=== PATIENT | female | born 1990 | race Caucasian/White ===

== ENCOUNTER 2022-10-10 08:59 | Outpatient (CLI) | payer OTHER, SELFPAY ==
--- NOTE | ~2022-10-10 | US_ITS ---
US_ABDRLQ_US 10/10/2022 10:22 Indication: Evaluate hernia repair. Right lower quadrant pain. Procedure: High-resolution Limited ultrasound of the right lower abdomen Comparison: No prior studies for comparison. Findings: Normal heterogeneous echotexture is present throughout the right lower abdomen without disc rete solid or cystic mass. No evidence for hernia. Normal bowel motility is noted. Impression: 1: Normal limited ultrasound of the right lower abdomen. Reviewed, dictated and finalized at location L. Impression: 1: Normal limited ultrasound of the right lower abdomen.
--- NOTE | ~2022-10-10 | US_ITS ---
EXAMINATION: US transvaginal DATE: 10/10/2022 10:22 INDICATION: Right lower quadrant pain Comparison:No prior studies for comparison. TECHNIQUE: Multiple transabdominal and endovaginal sonographic images of the pelvis performed. FINDINGS: The uterus measures 7.3 x 5.1 x 3.7 cm. The endometrial complex measures endometrium measur es 6 mm. There is fluid in the cervix. There is free fluid in the pelvis. There is a 2.3 cm right ova mandi cyst. There is a 2 cm left ovarian cysts. There is normal Doppler signal in both ovaries. IMPRESSION: 1. Small bilateral ovarian cysts, largest in the right ovary measuring 2.3 cm. 2: Normal endometrial thickness measuring 6 mm with trace fluid in the cervix. Reviewed, dictated and finalized at location L.
== END 2022-10-10 09:00 | disposition home or self-care (01) ==
PROVIDERS: PCP Nurse Practitioner Family; Visit Provider Nurse Practitioner Family
DX: R10.31 Right lower quadrant pain (principal); N83.201 Unspecified ovarian cyst, right side; N83.202 Unspecified ovarian cyst, left side
CPT/HCPCS: 76705; 76830

== ENCOUNTER 2023-06-11 10:08 | Outpatient (CLI) | payer OTHER, SELFPAY ==
[2023-06-11 10:58] LABS: Appearance Urine Clear (Clear); Bilirubin Urine Negative (Negative); Blood Urine Negative (Negative); Color Urine Yellow (Yellow); Glucose Urine UA Negative (Negative); Ketones Urine Negative (Negative); Leukocyte Esterase Ur Negative LEU/UL (NEGATIVE); Nitrate Urine Negative (Negative); Protein Urine Negative (Negative); Specific Grav Ur 1.023 (1.001-1.035); Urobilinogen Urine 0.2 mg/dL (<2.0); pH Urine 5.5 (5.0-9.0)
[2023-06-11 11:01] LABS: Hematocrit 38.9 % (37.0-47.0); Hemoglobin 12.9 g/dL (12.0-15.0); Mean Corpuscular HGB Conc 33.2 g/dl (32-36); Mean Corpuscular Hemoglobin 31.3 pg (26-34); Mean Corpuscular Volume 94.4 fl (80-100); Mean Platelet Volume 8.9 fl (7.4-10.4); Platelet Count Result 239 k/mm3 (150-375); Red Blood Count 4.12 M/mm3 (4.2-5.4); Red Cell Distribution Width 11.8 % (11.5-14.5); White Blood Count 8.9 K/mm3 (4.5-10.0)
[2023-06-11 11:41] LABS: Add Urine Microscopic? NO
[2023-06-11 11:51] LABS: HIV 1/2 Ab P24 Ag Result Negative (Negative)
[2023-06-11 12:14] LABS: Rubella IgG Antibody 55.8 IU/ML
[2023-06-11 12:34] LABS: Hepatitis C Virus Antibody Negative (Negative)
[2023-06-11 13:22] LABS: Hepatitis B Surface Antigen Negative (Negative)
[2023-06-11 14:13] LABS: Rapid Plasma Reagin Non-Reactive (NonReactive)
[2023-06-11 22:32] LABS: Hepatitis B Surface Antigen 0.07 S/C; Hepatitis C Virus Antibody 0.01 S/C
[2023-06-11 22:34] LABS: HIV 1/2 Ab P24 Ag 0.12
[2023-06-14 23:27] LABS: Hematocrit 39.9 % (35.0-45.0); Hemoglobin 12.9 g/dL (11.7-15.5); MCH 31.7 pg (27.0-33.0); RDW 11.9 % (11.0-15.0); Red Blood Cell Count 4.07 Mill/uL (3.80-5.10)
[2023-06-23 17:12] LABS: CF Result NEGATIVE (NEGATIVE); Ethnicity NG
== END 2023-06-11 10:09 | disposition home or self-care (01) ==
LOC: ANHLAB 10:12
PROVIDERS: PCP Nurse Practitioner Family; Visit Provider Obstetrics & Gynecology
DX: Z34.90 Encounter for supervision of normal pregnancy, unspecified, unspecified trimester (principal); Z3A.00 Weeks of gestation of pregnancy not specified
CPT/HCPCS: 36415; 81003; 81220; 81243; 83021; 84443; 85027; 86592; 86703; 86762; 86787; 86803; 86850; 86900; 86901; 87086; 87340; G0432

== ENCOUNTER 2023-06-30 09:43 | Outpatient (CLI) | payer MEDICAID, SELFPAY ==
--- NOTE | 2023-07-04 12:22 | WPDHOLTEREM ---
Holter/Event Monitor Holter/Event Monitor Date of procedure: 06/30/23 Holter/Event Procedure: 24 Hr Holter Monitor Indications: Congenital mal of heart Conclusion: 1. 24 hour holter monitor on 06/30/23. 2. Underlying rhythm is sinus rhythm. HR range 45-148 bpm; average 75 bpm. HR at 45 bpm at 05:37. HR at 148 bpm at 18:35. 3. There are 119 premature supraventricular complexes and 2 supraventricular couplets. No supraventricular tachycardia. 4. There are 2 premature ventricular complexes. No ventricular tachycardia. 5. No sinoatrial or atrioventricular blocks. No significant pauses greater than 2 seconds. 6. No symptoms available for correlation.
== END 2023-06-30 09:44 | disposition home or self-care (01) ==
PROVIDERS: PCP Nurse Practitioner Family; Visit Provider Obstetrics & Gynecology
DX: Q24.9 Congenital malformation of heart, unspecified (principal)
CPT/HCPCS: 93225; 93226

== ENCOUNTER 2023-08-19 09:39 | Outpatient (CLI) | payer OTHER, SELFPAY ==
--- NOTE | 2023-08-19 10:07 | ECHO_ITS ---
Patient Info Name: Wandy Brooks Age: 32 years : 1990 Gender: Female Ht: 63 in Wt: 166 lbs BSA: 1.85 m2 HR: 65 bpm BP: 112 / 67 mmHg Technical Quality: Fair Exam Date: 08/19/2023 10:10 AM Exam Location: Echo Lab Patient Status: Outpatient Admit Date: 08/19/2023 Staff Ordering Physician: Chuy Dhaliwal DO Grounds Cleaner: Irish Polanco RDCS Attending Provider: Chuy Dhaliwal DO Referring Physician: Isra CORMIER; Exam Type: CA echo doppler color flow Study Info Indications R00.2 - Palpitations Complete two-dimensional, color flow and Doppler transthoracic echocardiogram is performed. Summary 1. Complete two-dimensional, color flow and Doppler transthoracic echocardiogram is performed. 2. Left ventricular chamber dimension is mildly enlarged. 3. Left ventricular systolic function is normal, estimated at 60-65%. 4. The left ventricular diastolic function is normal. 5. E/e' 9 is minimally elevated. 6. There is trace mitral valve regurgitation. 7. There is trace tricuspid valve regurgitation. 8. No pulmonary hypertension, estimated pulmonary arterial systolic pressure is 27 mmHg. 9. There is trace pulmonic regurgitation. Left Ventricle E/e' 9 is minimally elevated. Left ventricular chamber dimension is mildly enlarged. Left ventricular systolic function is normal, estimated at 60-65%. The left ventricular diastolic function is normal. Right Ventricle Right ventricular chamber dimension is normal. Right ventricular systolic function is normal. Left Atria Left atrial chamber dimension is normal. Right Atria Right atrial chamber dimension is normal. Aortic Valve The aortic valve is trileaflet. There is no aortic valve stenosis. There is no aortic valve regurgitation. Pulmonic Valve There is trace pulmonic regurgitation. Mitral Valve There is no mitral valve stenosis. There is trace mitral valve regurgitation. Tricuspid Valve There is trace tricuspid valve regurgitation. No pulmonary hypertension, estimated pulmonary arterial systolic pressure is 27 mmHg. Pericardium/Pleural There is no pericardial effusion. Inferior Vena Cava Normal inferior vena cava with >50% collapse upon inspiration consistent with normal right atrial pressure, 5 mmHg. Aorta The aortic root size at the sinus of Valsalva is normal. Left Ventricular Outflow Tract Name Value Normal LVOT 2D LVOT Diameter 2.0 cm LVOT Doppler LVOT Peak Gradient 7 mmHg LVOT Mean Gradient 4 mmHg LVOT VTI 28 cm LVOT VTI/AV VTI Ratio 0.8 LVOT Stroke Volume 85 ml LVOT CO 6.1 l/min LVOT CI 3.3 l/min/m2 Pulmonic Valve Name Value Normal RVOT Doppler RVOT Peak Gradient 4 mmHg PV Doppler
== END 2023-08-19 09:40 | disposition home or self-care (01) ==
LOC: ANHCARD 09:42
PROVIDERS: PCP Nurse Practitioner Family; Visit Provider Internal Medicine Cardiovascular Disease
DX: R00.2 Palpitations (principal)
CPT/HCPCS: 93306

== ENCOUNTER 2023-09-24 07:21 | Outpatient (RCR) | payer OTHER, SELFPAY ==
[2023-09-24 08:56] LABS: Hematocrit 41.1 % (37.0-47.0); Hemoglobin 13.5 g/dL (12.0-15.0); Mean Corpuscular HGB Conc 32.8 g/dl (32-36); Mean Corpuscular Hemoglobin 32.1 pg (26-34); Mean Corpuscular Volume 97.6 fl (80-100); Mean Platelet Volume 9.2 fl (7.4-10.4); Platelet Count Result 256 k/mm3 (150-375); Red Blood Count 4.21 M/mm3 (4.2-5.4); Red Cell Distribution Width 12.7 % (11.5-14.5); White Blood Count 9.3 K/mm3 (4.5-10.0)
[2023-09-24 08:57] LABS: Glucose 1 Hour PP 50gm Dose 132 mg/dL
== END 2023-12-23 23:59 | disposition home or self-care (01) ==
LOC: ANHLAB 07:21
PROVIDERS: PCP Nurse Practitioner Family; Visit Provider Obstetrics & Gynecology
DX: O36.0190 Maternal care for anti-D [Rh] antibodies, unspecified trimester, not applicable or unspecified (principal); Z3A.00 Weeks of gestation of pregnancy not specified
CPT/HCPCS: 36415; 82947; 85027; 85461; 86850; 86900; 86901; 97140; 97530

== ENCOUNTER 2023-09-26 07:23 | Outpatient (CLI) | payer OTHER, SELFPAY ==
[2023-09-26 07:57] LABS: Glucose Fasting Gestational 81 mg/dL (>/=95)
[2023-09-26 09:37] LABS: Glucose 1 Hour Gest 93 mg/dL (>/=180)
[2023-09-26 10:52] LABS: Glucose 2 Hour Gest 122 mg/dL (>/= 155)
[2023-09-26 11:17] LABS: Glucose 3 Hour Gest 110 mg/dL (>/=140)
== END 2023-09-26 07:24 | disposition home or self-care (01) ==
LOC: ANHLAB 07:24
PROVIDERS: PCP Nurse Practitioner Family; Visit Provider Obstetrics & Gynecology
DX: O99.810 Abnormal glucose complicating pregnancy (principal); Z3A.00 Weeks of gestation of pregnancy not specified
CPT/HCPCS: 36415; 82951; 82952

== ENCOUNTER 2023-09-29 11:14 | Outpatient (CLI) | payer OTHER, SELFPAY ==
[2023-09-29] MEDS: RHO(D) IMMUNE GLOBULIN 300 MCG/2 ML SYRINGE IM (15:25)
== END 2023-09-29 11:15 | disposition home or self-care (01) ==
LOC: ANHLAB 11:15
PROVIDERS: PCP Nurse Practitioner Family; Visit Provider Obstetrics & Gynecology
DX: O26.899 Other specified pregnancy related conditions, unspecified trimester (principal); Z67.91 Unspecified blood type, Rh negative; Z3A.00 Weeks of gestation of pregnancy not specified
CPT/HCPCS: 36415; 85461; 86850; 86900; 86901; 90384; 96372; J2790

== ENCOUNTER 2023-10-29 08:45 | Outpatient (RCR) | payer OTHER, SELFPAY ==
--- NOTE | 2023-08-18 16:50 | PTOPEVAL1 ---
Assessment and note entered by Vinita Wiggins, PT Evaluation Information Assessment Status Evaluation Diagnosis dorsalgia, enc for supervision of normal usp Therapy condition Abnormal posture weakness sacroiliac instability lumbar instability Onset 22 weeks worsened Subjective Information Pt reports mostly feeling hip issues . history of disc bulge thinks L2, diagnosed at 20, no discernable traumatic event. Was given a joint cushioning shot that helped. Steroid shots did not help. Has had sciatic before as well, used to go down the right leg mostly, both for a short time. Dx of pelvic tilt but unsure of which way. Also has really flat feet. Reports has fallen ankles and the last therapist told her not to have arch supports. Used to take glucosamine chondroitin but hasn't recently Reported Pain Level Pain Score 6: Self Report Assessment PT Clinical Summary Pt presents with complaints of increased low back pain during her . She has a history of anterior pelvic tilt and she thinks an L2 disc bulge the has been treated for in the past. Her symptoms currently appear sacroiliac joint related as she feels grinding at times in the location of the sacroiliac joint. Today she demo's abnormal posture with possible RLE length > LLE approx 1/2 inches, poor posture with difficulty activating the TRAM musculature, poor foundation with flat feet and genu valgus aubree. Pt will benefit from therapy to address these deficits, improve lumbosacral stability,and reduce pain to improve quality and functionality during her and beyond. Plan of Care Interventions Manual Therapy,Neuro Re-education,Patient/ Caregiver Educati,Therapeutic Activities, Therapeutic Exercise PT Services Indicated Yes Treatment Frequency and 1-2x weekly x 12 visits Duration These treatments will address the objective and functional deficits as defined above. The patient will be advanced safely and appropriately in order for the patient to progress towards his/her prior level of function. Additional exercises will be introduced and as well as a comprehensive home exercise program upon discharge, if needed, ?to ensure carryover of functional gains achieved in the clinic. This treatment plan has been reviewed and agreement upon by the patient.
--- NOTE | 2023-08-18 16:51 | OPREHPOC ---
Outpatient Therapy Plan of Care This is a Multidisciplinary Plan of Care that may contain components documented by all disciplines (PT, OT, and ST.) PT Goal 1 Goal Pt will be independent in HEP Pt will verbalize understanding of diagnosis and prognosis Target Visit 6 PT Problem 2 PT Problem #2 Pain PT Goal 1 Goal Pt will report lowest pain rating at 0/10 to show improvement in overall discomfort Target Visit 6 PT Goal 2 Goal Pt will report greatest pain level at 5/10 or less to improve ADLs and activities Target Visit 12 PT Problem 3 PT Problem #3 Impaired Strength PT Goal 1 Goal Pt will demo strength of 4/5 aubree gluteus medius to improve lumbopelvic stability Target Visit 6 PT Goal 2 Goal Pt will demo core strength of 3+/5 of the TRAM to improve lumbopelvic stability Target Visit 12 PT Problem 4 PT Problem #4 Impaired Endurance PT Goal 1 Goal Pt will report ability to toelrate low level inserts for a full day to assist in ankle/foot/BLE alignment to improve foundation for lumbopelvic area. Target Visit 12
--- NOTE | 2023-10-29 10:05 | PTOPDC ---
Assessment and note entered by Vinita Wiggins, PT Evaluation Information Assessment Status Discharge Diagnosis dorsalgia, enc for supervision of normal uspec Onset 22 weeks worsened (since ) Subjective Information Pt states her previous co-morbidities had become unmanageable but has made significant progress. Is now 32 weeks . Reports feeling 90-95% improved. Feels great about her home exercises Reported Pain Level Pain Score 0: Self Report Assessment PT Clinical Summary Pt has attended therapy consistently for low back pain that had increased since . Today she reports her expectations related to pain reduction have been exceeded, she feels she has much more knowledge of her musculature and ability to strength appropriately, and correct her alignment. Her presentation today is WNL for 32 weeks gestation, she has met all her personal goals and therapy related goals, and reports understanding of her HEP and advancement. Thus patient is being discharged from therapy for having completed her plan of care. Plan of Care PT Services Indicated No
== END 2023-11-05 13:02 | disposition home or self-care (01) ==
LOC: ANHHIPT 08:45
PROVIDERS: PCP Nurse Practitioner Family; Visit Provider Obstetrics & Gynecology
DX: O26.893 Other specified pregnancy related conditions, third trimester (principal); M54.50 Low back pain, unspecified; Z3A.00 Weeks of gestation of pregnancy not specified
CPT/HCPCS: 97110; 97140; 97162; 97530; 97750

== ENCOUNTER 2023-11-03 11:07 | Outpatient (CLI) | payer OTHER, SELFPAY ==
[2023-11-03 11:40] LABS: Hematocrit 41.5 % (37.0-47.0); Hemoglobin 13.8 g/dL (12.0-15.0); Mean Corpuscular HGB Conc 33.3 g/dl (32-36); Mean Corpuscular Volume 96.3 fl (80-100); Mean Platelet Volume 9.6 fl (7.4-10.4); Platelet Count Result 237 k/mm3 (150-375); Red Blood Count 4.31 M/mm3 (4.2-5.4); Red Cell Distribution Width 12.5 % (11.5-14.5); White Blood Count 9.8 K/mm3 (4.5-10.0)
[2023-11-03 12:31] LABS: HIV 1/2 Ab P24 Ag Result Negative (Negative)
[2023-11-03 19:09] LABS: Rapid Plasma Reagin Non-Reactive (NonReactive)
== END 2023-11-03 11:08 | disposition home or self-care (01) ==
LOC: ANHLAB 11:08
PROVIDERS: PCP Nurse Practitioner Family; Visit Provider Nurse Practitioner Family
DX: Z34.90 Encounter for supervision of normal pregnancy, unspecified, unspecified trimester (principal); Z3A.00 Weeks of gestation of pregnancy not specified
CPT/HCPCS: 36415; 85027; 86592; 86703; G0432

== ENCOUNTER 2023-12-02 13:27 | Outpatient (CLI) | payer OTHER, SELFPAY ==
[2023-12-02 14:11] VITALS: BP 123/70; PULSE 70
--- NOTE | 2023-12-02 14:13 | PC.NURSE ---
Dr. Munguia notified of negation ROM plus, okay to discharge
[2023-12-02 14:14] LABS: OBXCEM ROM Plus Negative
== END 2023-12-02 14:16 | disposition home or self-care (01) ==
LOC: ANHOBOP 14:07 → ANHOBPP 14:07
PROVIDERS: PCP Nurse Practitioner Family; Visit Provider Obstetrics & Gynecology
DX: O42.90 Premature rupture of membranes, unspecified as to length of time between rupture and onset of labor, unspecified weeks of gestation (principal); Z3A.00 Weeks of gestation of pregnancy not specified
CPT/HCPCS: 59025; 84112; 99199

== ENCOUNTER 2023-12-09 13:29 | Outpatient (CLI) | payer OTHER, SELFPAY ==
[2023-12-09 14:15] VITALS: BP 127/76; PULSE 65
[2023-12-09 14:32] VITALS: BP 125/72; PULSE 65
[2023-12-09 14:39] LABS: Basophils Percent Auto 0.3 % (0.2-1.2); Eosinophils Absolute Auto 0.1 K/mm3 (0-0.3); Eosinophils Percent Auto 0.6 % (0-4.4); Hematocrit 39.6 % (37.0-47.0); Hemoglobin 13.8 g/dL (12.0-15.0); Immature Granulocyte Absolute 0.15 K/mm3 (0.00-0.031); Immature Granulocyte Percent A 1.4 % (0-0.5); Lymphocytes Absolute Auto 1.99 K/mm3 (0.9-3.2); Lymphocytes Percent Auto 18.2 % (18.3-44.2); Mean Corpuscular HGB Conc 34.8 g/dl (32-36); Mean Corpuscular Hemoglobin 33.3 pg (26-34); Mean Corpuscular Volume 95.7 fl (80-100); Mean Platelet Volume 10.5 fl (7.4-10.4); Monocytes Absolute Auto 1.1 K/mm3 (0.1-0.6); Monocytes Percent Auto 9.9 % (2.6-8.5); Neutrophils Absolute Auto 7.6 K/mm3 (1.3-6.7); Neutrophils Percent Auto 69.6 % (45.5-73.1); Platelet Count Result 205 k/mm3 (150-375); Red Blood Count 4.14 M/mm3 (4.2-5.4); Red Cell Distribution Width 13.3 % (11.5-14.5); White Blood Count 10.9 K/mm3 (4.5-10.0)
[2023-12-09 14:40] LABS: Add Urine Microscopic? NO; Appearance Urine Clear (Clear); Bilirubin Urine Negative (Negative); Blood Urine Negative (Negative); Color Urine Yellow (Yellow); Glucose Urine UA Negative (Negative); Ketones Urine Negative (Negative); Leukocyte Esterase Ur Negative LEU/UL (Negative); Nitrate Urine Negative (Negative); Protein Urine Negative (Negative); Specific Grav Ur 1.011 (1.001-1.035); Urobilinogen Urine 0.2 mg/dL (<2.0)
[2023-12-09 14:45] VITALS: BP 120/74; PULSE 70
[2023-12-09 14:46] LABS: Creatinine Urine 48.2 mg/dL; Total Protein Urine Random 16 mg/dL; Ur Ttl Prot Creatinine Ratio 0.33 mg/mg (0-0.20)
[2023-12-09 14:48] LABS: Alanine Aminotransferase 36 U/L (6-35); Albumin Level 3.7 g/dL (3.5-5.1); Alkaline Phosphatase 126 U/L (38-126); Anion Gap 8 mmol/L (4-12); Aspartate Amino Transferase 38 U/L (14-36); Bilirubin,Total 0.3 mg/dL (0.2-1.3); Blood Urea Nitrogen 12 mg/dL (7-17); Calcium 9.2 mg/dL (8.4-10.2); Carbon Dioxide 22 mmol/L (22-30); Chloride 103 mmol/L (98-107); Estimated Glomerular Filt Rate > 60; Glucose 78 mg/dL (65-110); Potassium 4.3 mmol/L (3.4-5.0); Sodium 133 mmol/L (137-145); Uric Acid 5.5 mg/dL (2.5-7.5)
[2023-12-09 14:52] VITALS: BP 127/76; PULSE 77
--- NOTE | 2023-12-09 14:54 | PC.NURSE ---
Patient discharged to home with orders for a [address] Munguia.
== END 2023-12-09 14:50 | disposition home or self-care (01) ==
LOC: ANHOBOP 13:33 → ANHLDR 13:33
PROVIDERS: PCP Nurse Practitioner Family; Visit Provider Obstetrics & Gynecology
DX: O13.9 Gestational [pregnancy-induced] hypertension without significant proteinuria, unspecified trimester (principal); Z3A.00 Weeks of gestation of pregnancy not specified
CPT/HCPCS: 36415; 59025; 80053; 81003; 82570; 84156; 84550; 85025; 99199

== ENCOUNTER 2023-12-10 16:45 | Outpatient (NON) | payer OTHER, SELFPAY ==
[2023-12-10 17:06] VITALS: BMI 35.5
[2023-12-10 17:21] LABS: Collection Time Urine 24 HOURS
[2023-12-10 17:37] LABS: Patient Weight 200 Lbs; Total Volume 24 Hour Urine 2000 ml
[2023-12-10 17:40] LABS: Total Protein Urine Random 10 mg/dL
[2023-12-10 17:43] LABS: Creatinine Clearance Urine 155.4 ml/min (75-125); Creatinine Urine 74.8 mg/dL
[2023-12-10 17:47] LABS: Total Protein Urine 24 Hr 200 mg/24hr (28-141); Total Volume 24 Hour Urine 2000 ml
== END 2023-12-10 16:46 | disposition home or self-care (01) ==
LOC: ANHOBOP 17:02
PROVIDERS: PCP Nurse Practitioner Family; Visit Provider Obstetrics & Gynecology
DX: Z34.90 Encounter for supervision of normal pregnancy, unspecified, unspecified trimester (principal); Z3A.00 Weeks of gestation of pregnancy not specified
CPT/HCPCS: 81050; 82575; 84156

== ENCOUNTER 2023-12-23 11:55 | Inpatient (IN) | payer OTHER, SELFPAY ==
[2023-12-23] VITALS (94 sets, daily range): BP systolic 109–147; BP diastolic 63–97; PULSE 53–92; TEMP 37; O2SAT 98–100; BMI 36.3
--- NOTE | ~2023-12-23 | US_ITS ---
EXAMINATION: US OB limited w BPP DATE: 12/23/2023 13:08 INDICATION: Evaluate well-being. 40 weeks gestation. TECHNIQUE: Real-time pelvic ultrasound was performed. The interpreting radiologist was not present fo r the study. COMPARISON: None. FINDINGS: There is a single living fetus in vertex presentation. The placenta is posterior. cardiac acti vity and movement are demonstrated. heart rate is 148 beats per minute (bpm). Amniotic fl uid volume is low measuring 4 cm (normal range for gestational age is 7.1-21.4 cm). Biophysical profile performed by the technologist: breathing (30 sec sustained breathing in 30 minutes): 2 out of 2 movement (3 gross body movements in 30 minutes): 2 out of 2 tone (one episode of uyfvcqq-kawhkgxcr-ugnybxs limb movement): 2 out of 2 Amniotic fluid pocket (2 cm): 2 out of 2 Total score: 8 out of 8 IMPRESSION: 1. Single living intrauterine in vertex presentation with heart rate of 148 bpm. 2. Oligohydramnios. FABIAN measures 4 cm. 3. Biophysical profile 8 out of 8. Reviewed, dictated and finalized at location B.
[2023-12-23 14:19] LABS: Basophils Percent Auto 0.3 % (0.2-1.2); Eosinophils Absolute Auto 0.1 K/mm3 (0-0.3); Eosinophils Percent Auto 0.6 % (0-4.4); Hematocrit 41.2 % (37.0-47.0); Hemoglobin 14.4 g/dL (12.0-15.0); Immature Granulocyte Absolute 0.11 K/mm3 (0.00-0.031); Lymphocytes Absolute Auto 1.95 K/mm3 (0.9-3.2); Lymphocytes Percent Auto 17.9 % (18.3-44.2); Mean Corpuscular Hemoglobin 33.3 pg (26-34); Mean Corpuscular Volume 95.4 fl (80-100); Mean Platelet Volume 10.9 fl (7.4-10.4); Monocytes Percent Auto 8.9 % (2.6-8.5); Neutrophils Absolute Auto 7.7 K/mm3 (1.3-6.7); Neutrophils Percent Auto 71.3 % (45.5-73.1); Platelet Count Result 195 k/mm3 (150-375); Red Blood Count 4.32 M/mm3 (4.2-5.4); Red Cell Distribution Width 13.5 % (11.5-14.5); White Blood Count 10.9 K/mm3 (4.5-10.0)
--- NOTE | 2023-12-23 14:31 | LDADM ---
This patient, Wandy Brooks, was admitted to Labor/Delivery/Recovery 107 on 12/23/23 at 11:55. Plans for labor, pain management and were discussed with patient. Patient/family oriented to hospital policies and general routines including ID bracelet, bed and alarms, visiting hours, pain management, procedures, bathroom and other care routines, personal items, smoking policy, room service/diet and guest tray routines, security routines, and visiting hours. Patient/Family are encouraged to report perceived risks to care and to ask questions if they do not understand what they are told or what they should do. See OBIX for further documentation.
[2023-12-23] MEDS: LACTATED RINGERS 1,000 ML 125 ML IV CONT ×2 (15:16→23:55)
[2023-12-23] MEDS: OXYTOCIN 30 UNITS/NS 500 ML 30 UNITS/500 ML BAG IV CONT (15:19)
[2023-12-23 15:20] LABS: HIV 1/2 Ab P24 Ag Result Negative (Negative)
--- NOTE | 2023-12-23 15:53 | PM.IMHP ---
H&P: HPI History of Present Illness Date/Time: 12/23/23 15:53 Chief Complaint: Oligohydramnios Narrative: patient is a 33-year-old G1. With an EDC of 12/23/2023. She was sent to Labor and delivery for decreased movement and also surveillance testing due to her wanting to deliver to 41 weeks if everything was fine. During the testing her FABIAN was 4.0. She was informed this is oligohydramnios and it is recommended for delivery induction. Discussed risk of oligohydramnios. And risk of if she continues without delivery. She agrees to induction of labor. Review of Systems Review of Systems: All systems reviewed & are unremarkable except as noted in HPI and below Constitutional: Constitutional: Reports no additional constitutional complaints and Denies headache(s) Eyes: Eyes: Denies spots in vision ENT: Reports system reviewed and no additional complaints, except as documented and Denies headache(s) Cardiovascular: Cardiovascular: Denies chest pain and Denies dyspnea Respiratory: Respiratory: Denies dyspnea Gastrointestinal: Gastrointestinal: Reports no additional gastrointestinal complaints Genitourinary: Genitourinary: Reports amenorrhea Musculoskeletal: Musculoskeletal: Reports no additional musculoskeletal complaints Integumentary/Breasts: Skin/Breast: Denies breast mass and Denies rash Neurologic: Denies headache(s) Psychiatric: Psychiatric: Reports no additional psychiatric complaints PMFSH Past Medical History Medical History Anemia Anxiety Back pain Bulging disc Depression Eczema Headache Heart defect Hypertension PTSD (post-traumatic stress disorder) Surgical History Surgical History H/O inguinal hernia repair H/O wisdom tooth extraction Family History Family History Mother Diabetes mellitus Depression Hypertension Heart disease Social History Social History Social History: Caffeine- daily Smoking status: Never smoker Second hand tobacco smoke exposure: No Alcohol intake: current Alcohol use details: Rarely Substance use: former Substance use type: marijuana Other substance usage details: Pt. states she used marijuana prior to Do You Feel Safe in your Home?: Yes Lack of Transportation: No Lack of Food: Never True Current Housing: I Have Housing Concerned About Future Housing: No Difficulty Paying Gas/Electric Bills: No Difficulty Paying for Meds: No Currently Unemployed: No Education: High School Diploma/GED Difficulty w/ Childcare or Family Care: No Living arrangements: with family Additional living arrangements comments: Boyfriend and his daughter Occupation/Education: other Additional occupation/education comments: stay at home mother Gender identity (if verbalized by the patient): Female Sexual Orientation (if Verbalized by the Patient): Straight or Heterosexual Spiritual care concerns: No Agree to blood products: Yes Meds Home Medications and Allergies Home Medications Medication Instructions Recorded Confirmed Type docosahexaenoic acid 200 mg 200 mg PO DAILY 05/14/23 12/23/23 History capsule ( DHA) Allergies Allergy/AdvReac Type Severity Reaction Status Date / Time fexofenadine [From Jamilah-D] Allergy Unknown Other Verified 12/23/23 11:35 pseudoephedrine Allergy Unknown Other Verified 12/23/23 11:35 [From Jamilah-D] adhesive tape AdvReac Mild Rash Verified 12/23/23 11:35 Vital Signs Vital Signs - 24 hr 12/23/23 12:37 12/23/23 14:16 12/23/23 14:31 Temperature Pulse Rate 74 71 79 Blood Pressure 124/85 127/95 H Blood Pressure [Right Arm] 124/76 12/23/23 15:01 12/23/23 15:15 12/23/23 15:31 Temperature 98.
--- NOTE | 2023-12-23 18:30 | WPDANESEPP ---
Anes - Eval Pre Procedure Procedure: Labor Epidural Date/Time: 12/23/23 18:30 Surgeon: Ezra Preop Diagnosis: Labor Pain Pre Op Diagnosis: nst/amina//bpp Patient Data Age: 33 Gender: F Height: 1.6 m Weight: 93 kg Last Vital Signs Temp 37.0 C 12/23/23 15:15 Pulse 66 12/23/23 18:01 BP 127/83 12/23/23 18:01 Allergies Allergy/AdvReac Type Severity Reaction Status Date / Time fexofenadine [From Jamilah-D] Allergy Unknown Other Verified 12/23/23 11:35 pseudoephedrine Allergy Unknown Other Verified 12/23/23 11:35 [From Jamilah-D] adhesive tape AdvReac Mild Rash Verified 12/23/23 11:35 Home Medications Medication Instructions Recorded Confirmed Type docosahexaenoic acid 200 mg 200 mg PO DAILY 05/14/23 12/23/23 History capsule ( DHA) Laboratory Tests 12/23/23 14:04 WBC 10.9 H K/mm3 (4.5-10.0) RBC 4.32 M/mm3 (4.2-5.4) Hgb 14.4 g/dL (12.0-15.0) Hct 41.2 % (37.0-47.0) MCV 95.4 fl (80-100) MCH 33.3 pg (26-34) MCHC 35.0 g/dl (32-36) RDW 13.5 % (11.5-14.5) Plt Count 195 k/mm3 (150-375) MPV 10.9 H fl (7.4-10.4) Immature Gran % (Auto) 1.0 H % (0-0.5) Neut % (Auto) 71.3 % (45.5-73.1) Lymph % (Auto) 17.9 L % (18.3-44.2) Frio % (Auto) 8.9 H % (2.6-8.5) Eos % (Auto) 0.6 % (0-4.4) Baso % (Auto) 0.3 % (0.2-1.2) Lymph # (Auto) 1.95 K/mm3 (0.9-3.2) Frio # (Auto) 1.0 H K/mm3 (0.1-0.6) Eos # (Auto) 0.1 K/mm3 (0-0.3) Baso # (Auto) 0.0 K/mm3 (0.0-0.1) Abs Immat Gran (auto) 0.11 H K/mm3 (0.00-0.031) Absolute Neuts (auto) 7.7 H K/mm3 (1.3-6.7) Absolute Nucleated RBC 0.000 K/mm3 (0.0-0.012) Nucleated RBC % 0.0 % (0.0-0.2) RPR Pending HIV 1&2 Ab/P24 Ag 4thGn Negative (Negative) Blood Type Pending Antibody Screen Positive Antibody Identification Pending Antigen Identification Pending ANDREZ, IgG Interpret Pending ANDREZ, Poly Interpret Pending ANDREZ, Complement Interp Pending Patient hx anesthesia problems: none Family hx anesthesia problems: none Results Review: All pre-operative results and documents have been reviewed as part of the pre-operative evaluation. [facility] Past Medical History Medical History Anemia Anxiety Back pain Bulging disc Depression Eczema Headache Heart defect Hypertension PTSD (post-traumatic stress disorder) Surgical History Surgical History H/O inguinal hernia repair H/O wisdom tooth extraction Family History Family History Mother Diabetes mellitus Depression Hypertension Heart disease Social History Social History Social History: Caffeine- daily Smoking status: Never smoker Second hand tobacco smoke exposure: No Alcohol intake: current Alcohol use details: Rarely Substance use: former Substance use type: marijuana Other substance usage details: Pt. states she used marijuana prior to Do You Feel Safe in your Home?: Yes Lack of Transportation: No Lack of Food: Never True Current Housing: I Have Housing Concerned About Future Housing: No Difficulty Paying Gas/Electric Bills: No Difficulty Paying for Meds: No Currently Unemployed: No Education: High School Diploma/GED Difficulty w/ Childcare or Family Care: No Living arrangements: with family Additional living arrangements comments: Boyfriend and his daughter Occupation/Education: other Additional occupation/education comments: stay at home mother Gender identity (if verbalized by the patient): Female Sexual Orientation (if Verbalized by the Patient): Straight or Heterosexual Spiritual care concerns: No Agree to blood products:
[2023-12-23 18:39] LABS: Rapid Plasma Reagin Non-Reactive (NonReactive)
[2023-12-23] MEDS: SODIUM CHLORIDE 0.9% IV 1,000 ML 150 ML I-UTERINE (23:55)
[2023-12-24] VITALS (77 sets, daily range): BP systolic 112–162; BP diastolic 66–90; PULSE 58–196; RESP 16–18; TEMP 36.6–37.2; O2SAT 89–100
[2023-12-24] MEDS: OXYTOCIN 30 UNITS/NS 500 ML 30 UNITS/500 ML BAG 999 UNITS IV CONT (02:30)
[2023-12-24] MEDS: OXYTOCIN 30 UNITS/NS 500 ML 30 UNITS/500 ML BAG 125 UNITS IV CONT (03:10)
[2023-12-24] MEDS: ACETAMINOPHEN 325 MG TABLET 650 MG PO ×3 (07:22→20:53)
[2023-12-24] MEDS: DOCUSATE SODIUM 100 MG CAPSULE PO (07:22)
[2023-12-24] MEDS: MULTIVIT/MIN/PREN/FOL AC/IRON TABLET 1 TAB PO (07:23)
--- NOTE | 2023-12-24 09:31 | PM.OBPRVD ---
OB - Vaginal Delivery Note Procedure Delivery date: 12/25/23 Events: Oligohydramnios Delivery monitor: External FHT and Internal Uterine Route of delivery: Episiotomy description: None Laceration Description: Vaginal and Labial (left inner labial minora) Delivery repair: vicryl (3.0 vicryl) Specimen: Yes Quantitative Blood Loss (ml): 200 Anesthesia type: Epidural Disposition: Floor Complications: No immediate complications Narrative: She was admitted for induction due to oligohydramnios. She had Pitocin induction. She had spontaneous rupture of membranes at approximately 11:00 p.m. clear fluid. She did have intrauterine pressure catheter placed for better assessment of contraction pattern. She progressed to active labor rapidly after spontaneous rupture membranes. She had an epidural placed upon request. She pushed less than an hour. Infant was vigorously crying upon delivery there was a left compound hand presentation. was vigorously crying upon delivery and placed in placed on maternal abdomen delayed cord clamping. Cord gases and cord blood obtained. Pitocin started. Placenta delivered spontaneously and intact. The marginal cord insertion was noted. She sustained a right vaginal wall laceration near the introitus which was repaired with 3-0 Vicryl hemostasis noted she also had a small laceration of the left inner labia which was repaired for hemostasis. Hemostasis obtained. Patient tolerated procedure well. Baby Date of : 12/24/23 Time of : 02:23 Gestational Age by Date: 40 gender: Female Weight (pounds): 6 Weight (ounces): 9 presentation: vertex position: Left Occiput Anterior (left compound hand presentation) Placenta delivery description: Spontaneous Cord Vessel Description: 3 Vessels and Delayed Cord Clamping score one minute: 9 score five minutes: 9
--- NOTE | 2023-12-24 14:00 | PC.NURSE ---
Introductions were made, then consulted with patient to assess needs related to . Mother led the conversation with her?plans to feed?her and the?experience so far. Encouraged understanding of the benefits of skin to skin (demonstrating unwrapping and placing upright on her chest), stimulating with massage touch, changing positions to encourage wakefulness, how to watch for early feeding cues, responsive feeding, feeding on demand (aiming for 8-12 times in 24 hours, about every 2-3 hours), milk production, building/maintaining a milk supply. Mother works well with her with encouragement and education. Reviewed positioning and ear, shoulder, hip alignment, supporting the breast to facilitate a deep latch, asymmetrical latch (off-center), leading with the chin with a big, open, wide gape and body close to mother. Infant latched optimally to the left breast in [cross cradle] position. Education given to the mother of how to visualize the suckling (with good rocking jaw motion). Infant was [able] to maintain latch without pain to mother protecting the nipple with optimal positioning and latching. Reviewed pinching vs. tenderness and using lanolin. She has a Zomee pump for home use and we discussed starting to pump after a few weeks and to pump after her first feeding of the day to establish a small supply. Mother voiced understanding of skin to skin, stimulating with massage touch, responsive feedings, hand expressed colostrum, talking to to encourage if it has been 2 -2.5 hours since the start of the last , to call if infant does not latch, or if there is discomfort with . Resources used for education were facilitated with the mom and baby guide, feeding sheet, name written on the communication board, and the mom/baby guide. Parents voiced understanding of information, demonstrated learning and will call if there is a request for assistance. Reported to the Primary RN.
[2023-12-25] MEDS: ACETAMINOPHEN 325 MG TABLET 650 MG PO (04:43)
[2023-12-25 05:36] LABS: Hematocrit 32.8 % (37.0-47.0); Hemoglobin 11.2 g/dL (12.0-15.0)
[2023-12-25 08:00] VITALS: PULSE 74; RESP 16; O2SAT 98
[2023-12-25 08:35] VITALS: BP 110/64; PULSE 74; RESP 16; TEMP 36.3; O2SAT 98
--- NOTE | 2023-12-25 09:00 | PC.NURSE ---
Introductions were made, then consulted with patient to assess needs related to . Discussed with mother her?plans to feed?her and the?experience so far. Mother stated that the last two feedings were very successful at the breast, she is not experiencing any pain with feedings, she is continuing to have to wake up baby for feedings, voiced to mother that is ok to do. Mother has no further questions at this time and she met with yesterday as well. Resources provided for inpatient and outpatient services, mom/baby guide and name written on the communication board. Mother voiced understanding of information and will call if there is a request for assistance. Reported to the Primary RN.
--- NOTE | 2023-12-25 09:41 | PM.OBPNVD ---
OB - PN: Subj Subjective Date/time seen: 12/25/23 09:41 Patient comments: pain well controlled, tolerating diet and other (Decreasing lochia.) baby status: doing well and nursing well [place] feeding status: exclusively breast feeding OB - PN: Obj Data Labs 12/25/23 04:21 Labs: Laboratory Results - last 24 hr 12/25/23 04:21 Hgb 11.2 L D Hct 32.8 L Blood Type A Negative Antibody Screen TNP Screen Negative Baby's Blood Type A pos Baby's ANDREZ Positive Doses of RhIg Required 1 OB - PN A/P Plan day: 1 Plan: discharge home Comments: Patient doing well. she requests discharge to home today. She is doing well. Discharge precautions discussed. Time Spent With Patient Time: Total time spent is greater than 50% in coordination of care (as documented) at patient's floor/unit and/or counseling patient: Exam Psych: Affect: normal affect Other: Abd: fundus firm below umbilicus, nontender Perineum: healing Ext: nontender
--- NOTE | 2023-12-25 09:42 | PM.OBDSVD ---
DS: Admitting Diagnosis Discharge Date December 25, 2023 Admitting Diagnosis oligohydramnios Medical induction of labor DS: Discharge Diagnosis Discharge Diagnosis (1) Vaginal delivery: Code(s): O80 - Encounter for full-term uncomplicated delivery Status: Acute OB - DS: Summary Hospital Course Hospital Course: she was admitted for medical induction of labor due to oligohydramnios. She had Pitocin induction. She had spontaneous rupture membranes had an uncomplicated vaginal delivery. she did well. Baby did well. She had adequate pain control ambulating well and nursing well. She requested discharge home on day 1. OB Procedures : NST and Ultrasound OB Procedures Intrapartum: Spontaneous Vag Delivery OB Procedures: : None Peripartum Data Infant Delivery Method: Natural Vaginal Laceration Description: Vaginal and Labial (left inner labial minora) Episiotomy description: None complications: none Status at Discharge Functional status at discharge: independent ambulation Time Spent with Patient Time attestation: Total time spent providing and/or coordinating discharge services: Exam Const: General: cooperative Orientation/consciousness: oriented to person, oriented to place and oriented to time HENMT: Face/Nose/Sinus: Normal external nose present Eyes: General: appearance normal, both eyes and all related structures Resp: Effort & Inspection: normal respiratory effort GI: Inspection: normal to inspection Skin: General skin exam: normal color Neuro: General: oriented to person, oriented to place and oriented to time Extrem: General: normal to inspection and no calf tenderness Psych: Appearance: grossly normal Mental Status: mental status grossly normal DS: Data Data Completed and Pending Pending studies at discharge: Pending at discharge 12/24/23 02:30 Surgical [PTH] Routine Labs on day of discharge: Labs from last 24 hours 12/25/23 04:21 Hgb 11.2 L D Hct 32.8 L Blood Type A Negative Antibody Screen TNP Screen Negative Baby's Blood Type A pos Baby's ANDREZ Positive Doses of RhIg Required 1 Discharge Plan Discharge Attending physician on discharge: Nicho Munguia Consulting providers: Alison Rouse Discharging Clinician: Nicho Munguia Anticipated Discharge Date/Time: 12/25/23 09:44 Patient Disposition: Home, Self-Care Activity: may shower, no straining and pelvic rest Diet: regular Patient Instructions: Antibiotic Form Stand Alone Forms: General Discharge Information Follow-up/Referrals: Nicho Munguia MD [Physician] - 4 Weeks ( Call for appointment) Discharge Medications: Continued DHA 200 mg capsule 200 mg PO DAILY Date of admission: 12/23/23 11:55 Primary Care Provider: Maria G Guevara Admitting Provider: Nicho Munguia Attending physician on admission: Nicho Munguia Condition: Stable
[2023-12-25] MEDS: DOCUSATE SODIUM 100 MG CAPSULE PO (10:28)
[2023-12-25] MEDS: MULTIVIT/MIN/PREN/FOL AC/IRON TABLET 1 TAB PO (10:28)
[2023-12-25] MEDS: RHO(D) IMMUNE GLOBULIN 300 MCG/2 ML SYRINGE IM (11:53)
--- NOTE | 2023-12-25 12:45 | WPDANLDPN2 ---
Anes-Prog Note L&D Date/Time: 12/25/23 12:45 Comfortable throughout: labor and delivery Neuraxial method: epidural Epidural/Spinal procedure site: clean & non-tender Neuro status: Neuro function grossly intact. Cardiovascular status: normal Respiratory status: normal Airway patency: baseline Mental status: baseline Post-Op hydration status: normal Vital Signs: Last Vital Signs Temp 36.3 C L 12/25/23 08:35 Pulse 74 12/25/23 08:35 Resp 16 12/25/23 08:35 BP 110/64 12/25/23 08:35 Pulse Ox 98 12/25/23 08:35 O2 Del Method Room Air 12/25/23 08:00 Pain score (VAS): 0/10 Post-procedural complaints: none Patient feedback: Patient satisfied with anesthetic care.
[2023-12-26 10:35] VITALS: BP 121/67; PULSE 74; RESP 18; TEMP 36.8; O2SAT 98
== END 2023-12-25 12:55 | disposition home or self-care (01) | DRG 560 ==
LOC: ANHOBOP 13:29 → ANHLDR 13:30 → ANHOB2 12-24 06:48
PROVIDERS: Admitting Provider Obstetrics & Gynecology; PCP Nurse Practitioner Family; Visit Provider Obstetrics & Gynecology
DX: O41.03X0 Oligohydramnios, third trimester, not applicable or unspecified (principal); Z37.0 Single live birth; Z3A.40 40 weeks gestation of pregnancy; O70.0 First degree perineal laceration during delivery; O69.89X0 Labor and delivery complicated by other cord complications, not applicable or unspecified; O32.6XX0 Maternal care for compound presentation, not applicable or unspecified
CPT/HCPCS: 36415; 59025; 76815; 76819; 85014; 85018; 85025; 85461; 86592; 86703; 86850; 86870; 86880; 86900; 86901; 86902; 86905; 86971; 88307; 90384; A9270; G0432; J2590; J2790; J2795; J7030; J7120